=== PATIENT | male | born 1965 | race Caucasian/White ===

== ENCOUNTER 2024-05-31 06:58 | Emergency (ER) | payer OTHER, BC ==
[2024-05-31] MEDS: Sodium Chloride 0.9% 10 ML Syringe FLUSH PRN (08:04)
[2024-05-31] MEDS: Iopamidol 612 MG/ML 100 ML Bottle IVPUSH ONE (08:05)
== END 2024-05-31 08:21 | disposition home or self-care (01) ==
LOC: JD.ED 06:58
DX: S20.211A Contusion of right front wall of thorax, initial encounter (principal); S00.01XA Abrasion of scalp, initial encounter; S00.81XA Abrasion of other part of head, initial encounter; I10 Essential (primary) hypertension; Z98.84 Bariatric surgery status; Z79.899 Other long term (current) drug therapy; V89.2XXA Person injured in unspecified motor-vehicle accident, traffic, initial encounter
CPT/HCPCS: 71260; 99284; J3490; Q9967